=== PATIENT | male | born 1965 | race Hispanic/Latino ===

== ENCOUNTER 2021-07-05 13:33 | Emergency (ER) | payer BC, OTHER ==
[~2021-07-05] VITALS: Ht 175.3 cm; Wt 81.6 kg
[2021-07-05] MEDS ORDERED: IBUPROFEN 600 MG TAB PO STA (14:29)
== END 2021-07-05 17:00 | disposition home or self-care (01) ==
LOC: MERGE 14:30 → ER 14:30
DX: S83.8X1A Sprain of other specified parts of right knee, initial encounter (principal); W01.0XXA Fall on same level from slipping, tripping and stumbling without subsequent striking against object, initial encounter; Y93.01 Activity, walking, marching and hiking; Y92.89 Other specified places as the place of occurrence of the external cause
CPT/HCPCS: 99283